=== PATIENT | female | born 1995 | race American Indian/Alaskan Native ===

== ENCOUNTER 2018-08-12 21:15 | Emergency (ER) | payer SELFPAY ==
--- NOTE | 2018-08-12 21:28 | Emergency Department Report ---
Blank Doc - Documentation Documentation: 22-year-old female that presents with intermittent chest pain and sob. Denies pain radiation. Stated chest pain is in the midsternum. Denies any URI symptoms. This initial assessment diagnostic orders/clinical plan/treatment(s) is/are subject to change based on patient's health status, clinical progression and re- assessment by fellow clinical providers in the ED. Further treatment and workup at subsequent clinical providers discretion. Patient/guardians urged not to e nany from ED s their condition may be serious if not clinically assessed and managed. Initial orders include: 1-Patient sent to [facility] for further evaluation and treatment 2- Labs 3- EKG 4- CXR
[2018-08-12 21:45] LABS: Basophils # (Auto) 0.1 K/mm3 (0.0-0.1); Basophils % (Auto) 0.6 % (0.0-1.8); Eosinophils # (Auto) 0.1 K/mm3 (0.0-0.4); Eosinophils % (Auto) 1.4 % (0.0-4.3); Hematocrit 41.2 % (30.3-42.9); Hemoglobin 13.6 gm/dl (10.1-14.3); Lymphocytes # (Auto) 4.1 K/mm3 (1.2-5.4); Lymphocytes % (Auto) 39.1 % (13.4-35.0); Mean Corpuscular HGB Conc 33 % (30-34); Mean Corpuscular Volume 82 fl (79-97); Monocytes # (Auto) 0.5 K/mm3 (0.0-0.8); Monocytes % (Auto) 5.2 % (0.0-7.3); Platelet Count 323 K/mm3 (140-440); Red Cell Distribution Width 15.5 % (13.2-15.2)
[2018-08-12 22:07] LABS: Alanine Aminotransferase 27 units/L (7-56); Albumin 4.1 g/dL (3.9-5); BUN/Creatinine Ratio 18; Blood Urea Nitrogen 11 mg/dL (7-17); Calcium 8.9 mg/dL (8.4-10.2); Hemolysis Index 61
--- NOTE | 2018-08-12 23:28 | XRay Report ---
FINAL REPORT PROCEDURE: Chest. TECHNIQUE: PA and lateral views. HISTORY: Chest pain. COMPARISON: No prior studies are available for comparison. FINDINGS: The heart and mediastinum appear normal. The lungs are clear and well expanded. There are no pleural effusions. The soft tissues and regional skeleton are unremarkable. IMPRESSION: Normal study.
[2018-08-13] MEDS ORDERED: AUGMENTIN 875 MG PO ONE (00:04)
[2018-08-13] MEDS ORDERED: IBUPROFEN PO ONE (00:04)
--- NOTE | 2018-08-13 01:23 | Emergency Department Report ---
ED Chest Pain HPI - General Chief Complaint: Chest Pain Stated Complaint: CHEST PAIN Time Seen by Provider: 08/12/18 21:40 Source: patient Mode of arrival: Ambulatory Limitations: No Limitations - History of Present Illness Initial Comments: Patient she would have [place] female who presents for cough no chest pain there is no shortness of breath or wheezing no fever no chills no diaphoresis no nausea vomiting no back pain is intermittent exacerbated by deep breathing . pain level is 4/10 MD Complaint: chest pain Onset/Timin -: days(s) Onset: other (deep breathing ) Pain Location: left chest Pain Radiation: none Severity scale (0 -10): 3 Quality: sharp Consistency: intermittent Improves With: rest Worsens With: inspiration Other Symptoms: cough Treatments Prior to Arrival: none - Related Data Previous Rx's Medication Instructions Recorded Last Taken Type Ibuprofen [Motrin] 600 mg PO Q8H #30 tablet 04/24/13 07/05/13 20:00 Rx Omeprazole [PriLOSEC] 20 mg PO QDAY #30 capsule.dr 07/06/13 Unknown Rx Albuterol Sulfate [Ventolin HFA] 2 puff IH Q4H PRN #1 hfa.aer.ad 10/24/14 Unknown Rx Loratadine [Claritin] 10 mg PO DAILY #30 tablet 10/24/14 Unknown Rx predniSONE [Deltasone] 20 mg PO QDAY #5 tab 10/24/14 Unknown Rx Amoxicillin/Potassium Clav 1 each PO BID 10 Days #20 tablet 08/13/18 Unknown Rx [Augmentin 875-125 Tablet] Ibuprofen 800 mg PO TID PRN #30 tablet 08/13/18 Unknown Rx Allergies Allergy/AdvReac Type Severity Reaction Status Date / Time No Known Allergies Allergy Verified 07/06/13 14:21 Heart Score - HEART Score History: Slightly suspicious EKG: Normal Age: < 45 Risk factors: No known risk factors Troponin: < normal limit HEART Score: 0 ED Review of Systems ROS: Stated complaint: CHEST PAIN Other details as noted in HPI Constitutional: denies: chills, fever Eyes: denies: eye pain, eye discharge, vision change ENT: ear pain, throat pain, congestion Respiratory: denies: cough, shortness of breath, wheezing Cardiovascular: chest pain. denies: palpitations Endocrine: no symptoms reported Gastrointestinal: denies: abdominal pain, nausea, vomiting, diarrhea Genitourinary: denies: urgency, dysuria, discharge Musculoskeletal: denies: back pain, joint swelling, arthralgia Skin: denies: rash, lesions Neurological: denies: headache, weakness, paresthesias Psychiatric: denies: anxiety, depression Hematological/Lymphatic: denies: easy bleeding, easy bruising ED Past Medical Hx - Past Medical History Additional medical history: Obesity - Surgical History Past Surgical History?: No - Social History Smoking Status: Never Smoker Substance Use Type: None - Medications Home Medications: Home Medications Medication Instructions Recorded Confirmed Last Taken Type Ibuprofen [Motrin] 600 mg PO Q8H #30 tablet 04/24/13 07/06/13 07/05/13 20:00 Rx Omeprazole [PriLOSEC] 20 mg PO QDAY #30 capsule.dr 07/06/13 Unknown Rx Albuterol Sulfate [Ventolin HFA] 2 puff IH Q4H PRN #1 hfa.aer.ad 10/24/14 Unknown Rx Loratadine [Claritin] 10 mg PO DAILY #30 tablet 10/24/14 Unknown Rx predniSONE [Deltasone] 20 mg PO QDAY #5 tab 10/24/14 Unknown Rx Amoxicillin/Potassium Clav 1 each PO BID 10 Days #20 tablet 08/13/18 Unknown Rx [Augmentin 875-125 Tablet] Ibuprofen 800 mg PO TID PRN #30 tablet 08/13/18 Unknown Rx ED Physical Exam - General Limitations: No Limitations General appearance: alert, in no apparent distress - Head Head exam: Present: atraumatic, normocephalic - Eye Eye exam: Present: normal appearance, PERRL, EOMI Pupils: Present: normal accommodation - ENT ENT exam: Present: mucous membranes moist - Expanded ENT Exam Expanded Ear exam: Present: normal external inspection TM/Canal exam: Erythema: Right TM, Left TM, Canal Tenderness: Left TM Mouth exam: Absent: trismus Throat exam: Positive: normal inspection, tonsillar erythema, tonsillomegaly, other (uvula midline no exudate no lesion no stridor no wheezing ). Negative: tonsillar exudate, R peritonsillar mass, L peritonsillar mass - Neck Neck exam: Present: normal inspection - Respiratory Respiratory exam: Present: normal lung sounds bilaterally, chest wall tenderness (left lateral chest wall ). Absent: respiratory distress, wheezes, stridor, prolonged expiratory - Cardiovascular Cardiovascular Exam: Present: regular rate, normal rhythm, normal heart sounds. Absent: systolic murmur, diastolic murmur, rubs, gallop - GI/Abdominal GI/Abdominal exam: Present: soft, normal bowel sounds. Absent: distended, tenderness, bruit, hernia - Rectal Rectal exam: Present: deferred - Extremities Exam Extremities exam: Present: normal inspection, full ROM, normal capillary refill. Absent: tenderness, pedal edema, joint swelling, calf tenderness - Back Exam Back exam: Present: normal inspection, full ROM, muscle spasm. Absent: tenderness, CVA tenderness (R), CVA tenderness (L), paraspinal tenderness, vertebral tenderness, rash noted - Neurological Exam Neurological exam: Present: alert, oriented X3, CN II-XII intact, normal gait - Psychiatric Psychiatric exam: Present: normal affect, normal mood - Skin Skin exam: Present: warm, dry, intact, normal color. Absent: rash ED Course Vital Signs 08/12/18 21:29 Temperature 98.9 F Pulse Rate 90 Respiratory 18 Rate Blood Pressure 153/74 O2 Sat by Pulse 98 Oximetry PETER score - Peter Score Age > 65: (0) No Aspirin use within the Past 7 Days: (0) No 3 or more CAD Risk Factors: (0) No 2 or more Angina events in past 24 hrs: (0) No Known CAD with more than 50% Stenosis: (0) No Elevated Cardiac Markers: (0) No ST Deviation Greater than 0.5mm: (0) No PETER Score: 0 ED Medical Decision Making - Lab Data Result diagrams: 08/12/18 21:34 08/12/18 21:34 Labs 08/12/18 08/12/18 08/12/18 21:34 21:34 21:34 WBC 10.5 RBC 5.00 Hgb 13.6 Hct 41.2 MCV 82 MCH 27 L MCHC 33 RDW 15.5 H Plt Count 323 Lymph % (Auto) 39.1 H Wise % (Auto) 5.2 Eos % (Auto) 1.4 Baso % (Auto) 0.6 Lymph # 4.1 Wise # 0.5 Eos # 0.1 Baso # 0.1 Seg Neutrophils % 53.7 Seg Neutrophils # 5.6 Sodium 141 Potassium 3.9 Chloride 104.1 Carbon Dioxide 27 Anion Gap 14 BUN 11 Creatinine 0.6 L Estimated GFR > 60 BUN/Creatinine Ratio 18 Glucose 106 H Calcium 8.9 Total Bilirubin 0.30 AST 22 ALT 27 Alkaline Phosphatase 71 Troponin T < 0.010 Total Protein 7.2 Albumin 4.1 Albumin/Globulin Ratio 1.3 HCG, Qual Negative 08/13/18 00:07 WBC RBC Hgb Hct MCV MCH MCHC RDW Plt Count Lymph % (Auto) Wise % (Auto) Eos % (Auto) Baso % (Auto) Lymph # Wise # Eos # Baso # Seg Neutrophils % Seg Neutrophils # Sodium Potassium Chloride Carbon Dioxide Anion Gap BUN Creatinine Estimated GFR BUN/Creatinine Ratio Glucose Calcium Total Bilirubin AST ALT Alkaline Phosphatase Troponin T < 0.010 Total Protein Albumin Albumin/Globulin Ratio HCG, Qual - EKG Data EKG shows normal: sinus rhythm Rate: normal - EKG Data When compared to previous EKG there are: previous EKG unavailable (no prev ekg in system ) Interpretation: normal EKG (ekg interp by ed attending ) - Radiology Data Radiology results: report reviewed, image reviewed No infiltrates no opacities normal chest xray - Medical Decision Making this is sinusitis with AOM , plan augmentin , ibuprofen, pt will follow up with pcp in 2-3 days , return to ed if symptoms worsen, pt verbalized agreement understanding of same. pt dc'd to home in stable condition at this time. Critical care attestation.: If time is entered above; I have spent that time in minutes in the direct care of this critically ill patient, excluding procedure time. ED Disposition Clinical Impression: Sinusitis Qualifiers: Sinusitis location: maxillary Chronicity: acute Recurrence: non-recurrent Qualified Code(s): J01.00 - Acute maxillary sinusitis, unspecified AOM (acute otitis media) Qualifiers: Otitis media type: serous Laterality: left Recurrence: non-recurrent Qualified Code(s): H65.02 - Acute serous otitis media, left ear URI (upper respiratory infection) Qualifiers: URI type: unspecified viral URI Qualified Code(s): J06.9 - Acute upper respiratory infection, unspecified Disposition: DC-01 TO HOME OR SELFCARE Is pt being admited?: No Does the pt Need Aspirin: No Condition: Stable Instructions: Sinusitis (ED), Otitis Media (ED), Upper Respiratory Infection (ED) Prescriptions: Amoxicillin/Potassium Clav [Augmentin 875-125 Tablet] 1 each PO BID 10 Days #20 tablet Ibuprofen 800 mg PO TID PRN #30 tablet PRN Reason: pain fever Referrals: JAMES SCHROEDER MD [Primary Care Provider] - 3-5 Days Forms: Work/School Release Form(ED) Time of Disposition: 02:11
[2018-08-13 02:17] VITALS: BP 142/77
== END 2018-08-13 02:17 | disposition home or self-care (01) ==
LOC: ED 21:15
DX: H65.02 Acute serous otitis media, left ear (principal); J06.9 Acute upper respiratory infection, unspecified; J01.00 Acute maxillary sinusitis, unspecified
CPT/HCPCS: 36415; 71046; 80053; 84484; 84703; 85025; 93005; 93010

== ENCOUNTER 2019-01-17 10:55 | Emergency (ER) | payer OTHER ==
--- NOTE | 2019-01-17 13:00 | Emergency Department Report ---
ED ENT HPI - General Chief complaint: Earache Stated complaint: HEARING LOSS IN (R) EAR Time Seen by Provider: 01/17/19 12:44 Source: patient Mode of arrival: Ambulatory Limitations: No Limitations - History of Present Illness Initial comments: Healthy 81-year-old female presents with severe ear pain after waking up this morning. Feels congestion. Did have cold symptoms with nasal congestion. MD complaint: ear pain -: Gradual Location: L ear Severity: moderate Consistency: constant Improves with: none Worsens with: none - Related Data Previous Rx's Medication Instructions Recorded Last Taken Type Ibuprofen [Motrin] 600 mg PO Q8H #30 tablet 04/24/13 07/05/13 20:00 Rx Omeprazole [PriLOSEC] 20 mg PO QDAY #30 capsule. 07/06/13 Unknown Rx Albuterol Sulfate [Ventolin HFA] 2 puff IH Q4H PRN #1 hfa.aer.ad 10/24/14 Unknown Rx Loratadine [Claritin] 10 mg PO DAILY #30 tablet 10/24/14 Unknown Rx predniSONE [Deltasone] 20 mg PO QDAY #5 tab 10/24/14 Unknown Rx Amoxicillin/Potassium Clav 1 each PO BID 10 Days #20 tablet 08/13/18 Unknown Rx [Augmentin 875-125 Tablet] Ibuprofen [Ibuprofen 800] 800 mg PO TID PRN #30 tablet 08/13/18 Unknown Rx Amoxicillin [Trimox CAP] 2 cap PO Q8H 7 Days #42 capsule 01/17/19 Unknown Rx Allergies Allergy/AdvReac Type Severity Reaction Status Date / Time No Known Allergies Allergy Verified 07/06/13 14:21 ED Dental HPI - General Chief complaint: Earache Stated complaint: HEARING LOSS IN (R) EAR Time Seen by Provider: 01/17/19 12:44 Source: patient Mode of arrival: Ambulatory Limitations: No Limitations - Related Data Previous Rx's Medication Instructions Recorded Last Taken Type Ibuprofen [Motrin] 600 mg PO Q8H #30 tablet 04/24/13 07/05/13 20:00 Rx Omeprazole [PriLOSEC] 20 mg PO QDAY #30 capsule. 07/06/13 Unknown Rx Albuterol Sulfate [Ventolin HFA] 2 puff IH Q4H PRN #1 hfa.aer.ad 10/24/14 Unknown Rx Loratadine [Claritin] 10 mg PO DAILY #30 tablet 10/24/14 Unknown Rx predniSONE [Deltasone] 20 mg PO QDAY #5 tab 10/24/14 Unknown Rx Amoxicillin/Potassium Clav 1 each PO BID 10 Days #20 tablet 08/13/18 Unknown Rx [Augmentin 875-125 Tablet] Ibuprofen [Ibuprofen 800] 800 mg PO TID PRN #30 tablet 08/13/18 Unknown Rx Amoxicillin [Trimox CAP] 2 cap PO Q8H 7 Days #42 capsule 01/17/19 Unknown Rx Allergies Allergy/AdvReac Type Severity Reaction Status Date / Time No Known Allergies Allergy Verified 07/06/13 14:21 ED Review of Systems ROS: Stated complaint: HEARING LOSS IN (R) EAR Other details as noted in HPI Constitutional: denies: fever, malaise ENT: ear pain, congestion. denies: throat pain, hearing loss, epistaxis Respiratory: cough Cardiovascular: denies: chest pain Gastrointestinal: denies: abdominal pain ED Past Medical Hx - Past Medical History Previous Medical History?: Yes Additional medical history: Obesity - Surgical History Past Surgical History?: No - Social History Smoking Status: Never Smoker Substance Use Type: None - Medications Home Medications: Home Medications Medication Instructions Recorded Confirmed Last Taken Type Ibuprofen [Motrin] 600 mg PO Q8H #30 tablet 04/24/13 07/06/13 07/05/13 20:00 Rx Omeprazole [PriLOSEC] 20 mg PO QDAY #30 capsule.dr 07/06/13 Unknown Rx Albuterol Sulfate [Ventolin HFA] 2 puff IH Q4H PRN #1 hfa.aer.ad 10/24/14 Unknown Rx Loratadine [Claritin] 10 mg PO DAILY #30 tablet 10/24/14 Unknown Rx predniSONE [Deltasone] 20 mg PO QDAY #5 tab 10/24/14 Unknown Rx Amoxicillin/Potassium Clav 1 each PO BID 10 Days #20 tablet 08/13/18 Unknown Rx [Augmentin 875-125 Tablet] Ibuprofen [Ibuprofen 800] 800 mg PO TID PRN #30 tablet 08/13/18 Unknown Rx Amoxicillin [Trimox CAP] 2 cap PO Q8H 7 Days #42 capsule 01/17/19 Unknown Rx ED Physical Exam - General Limitations: No Limitations General appearance: alert, in no apparent distress, other (appears well appears nontoxic) - Head Head exam: Present: atraumatic - Eye Eye exam: Absent: scleral icterus, conjunctival injection - ENT ENT exam: Present: mucous membranes moist, other (left tympanic membrane, edematous erythematous with purulent effusion bulging) - Neurological Exam Neurological exam: Present: alert, oriented X3 - Psychiatric Psychiatric exam: Present: normal affect, normal mood ED Medical Decision Making - Medical Decision Making Acute otitis media prescribed Claritin and amoxicillin Critical care attestation.: If time is entered above; I have spent that time in minutes in the direct care of this critically ill patient, excluding procedure time. ED Disposition Clinical Impression: Acute otitis media, left Disposition: DC-01 TO HOME OR SELFCARE Is pt being admited?: No Does the pt Need Aspirin: No Condition: Stable Instructions: Otitis Media (ED) Prescriptions: Amoxicillin [Trimox CAP] 2 cap PO Q8H 7 Days #42 capsule Referrals: [facility] [Outside] - 3-5 Days
== END 2019-01-17 13:39 | disposition home or self-care (01) ==
LOC: ED 10:55
DX: H66.92 Otitis media, unspecified, left ear (principal); Z79.899 Other long term (current) drug therapy
CPT/HCPCS: 99281